=== PATIENT | male | born 1945 | race Caucasian/White ===

== ENCOUNTER 2017-05-15 04:51 | Inpatient (IN) | payer BC ==
[2017-05-09 16:47] LABS: BASOPHILS 0.6 %; BASOPHILS ABSOLUTE 0.07 10/3/uL (0.0-0.16); EOSINOPHILS 1.9 %; EOSINOPHILS ABSOLUTE 0.24 10/3/uL (0.0-0.53); HEMATOCRIT 46.5 % (40.0-51.0); HEMOGLOBIN 15.7 g/dL (13.6-17.8); IMMATURE GRANULOCYTES 0.4 %; IMMATURE GRANULOCYTES ABSOLUTE 0.05 10/3/uL (0.0-0.11); LYMPHOCYTES 26.6 %; LYMPHOCYTES ABSOLUTE 3.31 10/3/uL (0.67-4.30); MANUAL DIFF NO %; MEAN CORPUS HGB CONC 33.8 g/dL (32.0-36.0); MEAN CORPUSCULAR HEMOGLOB 30.2 pg (26.0-34.0); MEAN CORPUSCULAR VOLUME 89.4 fL (80-100); MONOCYTES 6.9 %; MONOCYTES ABSOLUTE 0.86 10/3/uL (0.21-1.20); NEUTROPHILS 63.6 %; NEUTROPHILS ABSOLUTE 7.93 10/3/uL (2.02-8.40); PLATELET COUNT 329 10/3/uL (150-400); WHITE BLOOD CELLS 12.5 10/3/uL (4.5-10.5)
[2017-05-09 16:54] LABS: CALCIUM, SERUM 8.9 MG/DL (8.5-10.4); CHLORIDE, SERUM 109 MMOL/L (96-112); CO2 (CARBON DIOXIDE) 29 MMOL/L (24-34); CREATININE 0.83 MG/DL (0.70-1.30); GFR AFRICAN AMERICAN 102 ML/MIN (>=60); GFR NON AFRICAN AMERICAN 88 ML/MIN (>=60); GLUCOSE, SERUM 93 MG/DL (60-99); POTASSIUM, SERUM 3.6 MMOL/L (3.5-5.3); SODIUM, SERUM 144 MMOL/L (135-148)
[2017-05-09 16:55] LABS: BUN (BLOOD UREA NITROGEN) 14 MG/DL (6-23)
[2017-05-09 17:58] LABS: ASCORBIC ACID (UR NOT ORDER) NEG (NEG); BILIRUBIN, URINE NEGATIVE (NEG); KETONE, URINE NEGATIVE (NEG); LEUKOCYTE ESTERASE(NOT OR NEG (NEG); WBC (NOT ORDERED) (RFLEX) 2 (0-5)
--- NOTE | ~2017-05-15 | OP ---
Record Of Operation [facility] [address] [place]. [address] NAME: JOSE DE JESUS YAP : 43 STATUS : ADM IN PAT#: [id number] AGE: 71 ADM/REG DATE : 05/15/17 MR#: [id number] REPORT SERV DATE: 05/15/17 DICTATED BY: ELVIS HOWARD DATE: 05/15/17 REPORT STATUS : Draft TRANSCRIBED BY: MODL DATE: 05/15/17 DATE OF PROCEDURE: 05/15/2017 PREOPERATIVE DIAGNOSIS: Abdominal aortic aneurysm. POSTOPERATIVE DIAGNOSIS: Abdominal aortic aneurysm. SURGERY PERFORMED: Abdominal aortic aneurysm replacement with [employer] endograft, which was a 28 x 13 x 145, with a right contra limb being a 16 x 20. SUPERVISOR RECEIVING AND PROCESSING: Joselito. DESCRIPTION OF PROCEDURE: The patient was placed under general anesthesia. Both groins and abdomen were prepped and draped in a sterile fashion. Both common femoral vessels were cannulated with ultrasound direction. Needle, wire, and sheath were placed. Two ProGlide closures were placed in both femoral vessels and then the 11 sheath placed back into the vessel. An aortogram with pelvic runoff done with the marker catheter, showing the level of the renal arteries, and the bifurcation of the iliac on the left side. He was given 5000 units of heparin. After an adequate period of time,The main body was placed up the left side over an Amplatzer wire, positioned just below the renal arteries. The initial deployment was done at the renal artery. Again, this was a 28 x 13 x 145 graft. The graft was then sheathed down to the contra gate which was cannulated with a Glidecath, and repeat film with the marker catheter showing the level of the iliac bifurcation. The contra limb was a 16 x 20 which was deployed just above the bifurcation of the iliac. The top portion of the endograft was then fully deployed. The delivery devices were removed. Sheaths were placed in both groins. The proximal graft, the overlapping part on the contra limb was done from the right side using an aortic balloon, and then also the distal attachment. The left distal attachment was done with the same balloon. After this was completed, the UF was placed back into the aorta. Aortogram with runoff showing the graft was in good position. There was good flow in both internal and external iliac arteries distally. When this was completed, the sheaths were removed. The ProGlide were deployed bilaterally with good result. Dry dressings were then applied. Estimated blood loss was 50 mL. He was taken to the recovery room in stable condition. MG/MODDaylin Elvis Howard M.D. / [id number] CC: Elvis Howard M.D.
[~2017-05-15 04:51] MED LIST: B COMPLEX PO; FISH OIL1200 MG PO; NORCO1 TA1 PO; PROSCAR5 PO; VITAMIN D31000 UNIT PO; [UNRECOGNIZED DRUG - OTHER] PO; [UNRECOGNIZED DRUG - OTHER] PO
[2017-05-16 04:06] LABS: BUN (BLOOD UREA NITROGEN) 15 MG/DL (6-23); CALCIUM, SERUM 7.9 MG/DL (8.5-10.4); CHLORIDE, SERUM 110 MMOL/L (96-112); CO2 (CARBON DIOXIDE) 20 MMOL/L (24-34); CREATININE 0.83 MG/DL (0.70-1.30); GFR AFRICAN AMERICAN 102 ML/MIN (>=60); GFR NON AFRICAN AMERICAN 88 ML/MIN (>=60); GLUCOSE, SERUM 112 MG/DL (60-99); POTASSIUM, SERUM 4.2 MMOL/L (3.5-5.3); SODIUM, SERUM 138 MMOL/L (135-148)
[2017-05-16 04:13] LABS: BASOPHILS 0.3 %; BASOPHILS ABSOLUTE 0.05 10/3/uL (0.0-0.16); EOSINOPHILS 0.6 %; HEMOGLOBIN 13.8 g/dL (13.6-17.8); IMMATURE GRANULOCYTES 0.4 %; IMMATURE GRANULOCYTES ABSOLUTE 0.06 10/3/uL (0.0-0.11); LYMPHOCYTES 16.6 %; MEAN CORPUSCULAR HEMOGLOB 30.2 pg (26.0-34.0); MEAN CORPUSCULAR VOLUME 91.5 fL (80-100); MEAN PLATELET VOLUME 9.6 fL (9.2-13.0); MONOCYTES 7.5 %; MONOCYTES ABSOLUTE 1.26 10/3/uL (0.21-1.20); NEUTROPHILS 74.6 %; NEUTROPHILS ABSOLUTE 12.57 10/3/uL (2.02-8.40); RBC DISTRIBUTION WIDTH 15.1 % (12.0-16.0); RED CELL COUNT 4.57 10/6/uL (4.7-6.1)
[2017-05-16 04:26] LABS: HEMATOCRIT 41.8 % (40.0-51.0); MANUAL DIFF NO %; PLATELET COUNT 214 10/3/uL (150-400); WHITE BLOOD CELLS 16.8 10/3/uL (4.5-10.5)
[2017-05-16] MEDS ORDERED: LIPITOR40 PO (08:31)
== END 2017-05-16 09:20 | disposition home or self-care (01) | DRG 269 ==
LOC: SDC/OF 04:51 → PACU 08:33 → CVICU 10:36
PROVIDERS: Surgery Vascular Surgery
PROC: 04V03DZ Restriction of Abdominal Aorta with Intraluminal Device, Percutaneous Approach (ICD-10-PCS; principal; 2017-05-15 06:45)
DX: I71.4 Abdominal aortic aneurysm, without rupture (principal); J44.9 Chronic obstructive pulmonary disease, unspecified; I10 Essential (primary) hypertension; Z87.891 Personal history of nicotine dependence; E78.5 Hyperlipidemia, unspecified; Z87.442 Personal history of urinary calculi; M19.90 Unspecified osteoarthritis, unspecified site
CPT/HCPCS: 34802; 36200; 71010; 75952; 80048; 81001; 85025; 85048; 87641; 93005; A9270-GY; C1725; C1760; C1768; C1769; C1876; C1887; C1894; J0690; J1956; J2250; J2370; J2405; J2710; J3010; Q9967